=== PATIENT | male | born 1940 | race Caucasian/White ===

== ENCOUNTER → 2016-12-10 | Day surgery (SDC) | payer MEDICARE ==
[~2016-12-10] MED LIST: ALPR.25 PO; ALPR0.25 PO; AMLO5TAB22 PO; BUPIVACAINE/EPINEPHRINE 0.5% 50 ML VIAL ONE; FINA5TAB77; GLUC1000 PO; HYDR-3288 PO; HYDR-3533 PO; LACTATED RINGER'S 1000 ML INJ 1,000 ML ONE; LIDOCAINE 1%/EPINEPHrine 1:100,000 SOLN 20 ML VIAL ONE; LISI-360 PO; LISI10TA3 PO; LOPE2 PO; LOPE2CAP PO; METF1000 PO; PRAV10; PRAV10TA PO; PROS5TAB PO; TERA10CA3 PO; WARF-23 PO; WARF5TAB PO; ceFAZolin 2 GM PREMIX 50 ML ONE
[2016-12-10 08:05] LABS: INTERNATIONAL NORMALIZED RATIO 1.6 RATIO; PROTHROMBIN TIME - PATIENT 17.6 SEC (9.8-11.6)
== END | disposition home or self-care (01) ==
LOC: ESDC 06:08
PROVIDERS: ATTEND Orthopaedic Surgery Orthopaedic Surgery of the Spine
DX: S32.050A Wedge compression fracture of fifth lumbar vertebra, initial encounter for closed fracture (principal); Z53.9 Procedure and treatment not carried out, unspecified reason
CPT/HCPCS: 36415; 85610; G0463; J0690; J7120; 99211

== ENCOUNTER → 2016-12-11 | Day surgery (SDC) | payer MEDICARE ==
--- NOTE | 2016-12-10 14:31 | MH ---
cc: SHERRY PLATA DATE OF ADMISSION: 12/11/2016 ADMISSION DIAGNOSIS Compression fracture, lumbar spine. HISTORY OF PRESENT ILLNESS This patient is a 76-year-old male with significant low back pain. He was seen by the undersigned on 12/03/2016. The patient was complaining of severe onset of pain in his low back since October 2016. Apparently he was lifting his dog when he had the sudden onset of severe low back pain. He sought medical attention and studies were eventually done. The patient had an MRI scan of the lumbar spine showing evidence of a compression fracture of his low back. He presents now for biopsy and kyphoplasty of L5. His bone marrow has an abnormal look to it and in speaking with his primary care physician, there is some concern of myeloma. The patient presents for biopsy in addition to the above procedure for the purpose of defining the etiology of the fracture other than posttraumatic PAST MEDICAL HISTORY, SOCIAL HISTORY, FAMILY HISTORY, REVIEW OF SYSTEMS: See attached notes. PHYSICAL EXAMINATION VITAL SIGNS: A 76-year-old male, 5 feet 5 inches, 148 pounds, BMI 24.6, blood pressure 122/84. HEENT: Normocephalic, atraumatic. Pupils equal, round and reactive to light and accommodation. Extraocular movements intact. NECK: Supple. CHEST: Clear. HEART: Regular rate and rhythm. ABDOMEN: Soft, nontender. Normoactive bowel sounds. MUSCULOSKELETAL: The thoracolumbar spine has restricted motion, pain with range of motion, moderate spasm. Lower extremity straight leg raise is negative. Motor examination is normal. IMPRESSION 1. Compression fracture at L5. 2. Possible pathologic fracture. PLAN Kyphoplasty of L5 with biopsy and placement of bone cement spacer. CONSENT There are risks with surgery including infection, bleeding, loss of motion, continued pain, need for further surgery, neurologic and vascular injury. The patient understands these issues and wishes to press on with surgery as outlined above. Sherry Plata MD [facility] [place] /2:06 PM /2:21 PM
[~2016-12-11] VITALS: Ht 165.1 cm; Wt 61.7 kg
[~2016-12-11] MED LIST changes: +ACETAMINOPHEN/HYDROcodone 325 MG/7.5 MG TAB PO PRN; +BUPIVACAINE/EPINEPHRINE 0.25% 50 ML VIAL ONE; -BUPIVACAINE/EPINEPHRINE 0.5% 50 ML VIAL ONE; +CHLORHEXIDINE GLUCONATE 2 % 1 PACK (2 CLOTHS) TOPICAL PRN; +CHLORHEXIDINE GLUCONATE 4% SOLN 120 ML BTL TOPICAL SCH; +DO NOT ADM ANY ANTICOAGULANT DRUGS PRN; +GADODIAMIDE PF 287 MG/ML 20 ML VIAL (for RAD MRI) I-ARTERIAL ONE; +INSULIN HUMAN REGULAR 1,000 UNITS/10 ML VIAL SQ PRN; +KETAMINE HCL 500 MG/5 ML VIAL ONE; -LACTATED RINGER'S 1000 ML INJ 1,000 ML ONE; +LACTATED RINGER'S 1000 ML IV PRN; +METOPROLOL TARTRATE 25 MG TAB PO PRN; +MIDAZOLAM HCL 2 MG/2 ML VIAL ONE; +MORPHINE SULFATE 4 MG/ML INJ IV PRN; +PROPOFOL 200 MG/20 ML AMP IV ONE; +SODIUM CHLORID 0.9% 500 ML IV PRN; +ceFAZolin 2 GM PREMIX 50 ML IV SCH; -ceFAZolin 2 GM PREMIX 50 ML ONE
[2016-12-11 06:54] VITALS: BP 114/70; PULSE 91; RESP 20; TEMP 98; O2SAT 98
[2016-12-11 07:21] LABS: APTT (PATIENT) 24.5 SEC (24.3-30.1); INTERNATIONAL NORMALIZED RATIO 1.4 RATIO; PROTHROMBIN TIME - PATIENT 15.9 SEC (9.8-11.6)
--- NOTE | 2016-12-11 10:55 | PD.OP ---
cc: Ketan Gaston MD Operative Report Date of Surgery: Dec 11, 2016 Preoperative Diagnosis: Compression fracture L5, subacute. Possible pathologic fracture Postoperative Diagnosis: Same Procedure: L5 kyphoplasty. Biopsy of L5 vertebral body Anesthesia: TIVA Surgeon: Ketan Gaston Linux Security Administrator(s): None Operation and Findings: EBL: Minimal cc INDICATION: This patient is a 76-year-old male with a compression fracture at L5. This is suspicious for a pathologic fracture. The patient has changes on x -ray that are suspicious for multiple myeloma and his primary care physician is concerned this represents multiple myeloma. He presents for a biopsy and kyphoplasty at L5 PROCEDURE: The patient was brought to the operating room and given light sedation.. The patient was allowed to rolled to a prone position on a well- padded radiolucent table. All pressure points were protected in the back was scrubbed with alcohol followed by Hibiclens followed by ChloraPrep and draped sterilely. A timeout was done and antibiotics were given. AP and lateral radiographic images were used to identify the proper levels and perform skin markings. We started from the left side at the 5 level. Local anesthesia was utilized. A small incision was made. An awl was placed down through the skin subcutaneous tissue and muscle down to the end of the facet joint. A core biopsy was performed . This is placed through the pedicle controlling this under AP and lateral images. A proper size balloon was placed through this allowing correction of the deformity. On the back table methylmethacrylate was mixed. After approximately 11 minutes it was injected at this region. We had no extravasation. The cement was allowed harden. The tubes were removed. Intraoperative x-rays were obtained in AP and lateral plane. The wound was irrigated anesthetized and closed with 4-0 Vicryl followed by Dermabond. The sponge count and needle counts and instrument counts were all correct. The patient tolerated the procedure well as taken to the recovery room in satisfactory condition. FINDINGS: There was very soft bone. There was evidence of a compression fracture which was partially corrected. The biopsy was uneventful Ketan Gaston MD Dec 11, 2016 10:55
[2016-12-11 12:00] VITALS: BP 120/84; PULSE 79; RESP 18; TEMP 98.3; O2SAT 96
--- NOTE | 2016-12-11 15:00 | EKG ---
Date Performed: 12/11/2016 Time Performed: 07:12:17 PTAGE: 76 years EKG: Sinus rhythm WITH OCCASIONAL VENTRICULAR PREMATURE COMPLEXES WITH OCCASIONAL SUPRAVENTRICULAR PREMATURE COMPLEXES RIGHT BUNDLE BRANCH BLOCK ABNORMAL ECG NO PREVIOUS TRACING DOCTOR: Seble Mccoy Interpretating Date/Time 12/11/2016 14:55:45
--- NOTE | 2016-12-11 18:14 | RADRPT ---
EXAM DATE/TIME: 12/11/2016 10:18 [facility] COMPARISON: No previous studies available for comparison. INDICATIONS : L5 Kyphoplasty. MEDICAL HISTORY : Hypertension. Diabetes mellitus type II. SURGICAL HISTORY : Cholecystectomy. Appendectomy. ENCOUNTER: Initial ACUITY: 1 day PAIN SCORE: Non-responsive. LOCATION: Lumbar spine. FINDINGS: Two view examination was performed. There are kyphoplasty changes at L5. No complications are identi fied. CONCLUSION: 1. Postop L5 kyphoplasty. Addy Betancourt MD on December 11, 2016 at 18:11 Board Certified Radiologist. This report was verified electronically.
== END | disposition home or self-care (01) ==
LOC: HSDC 06:14
PROVIDERS: ATTEND Orthopaedic Surgery Orthopaedic Surgery of the Spine
DX: S32.059A Unspecified fracture of fifth lumbar vertebra, initial encounter for closed fracture (principal); X50.9XXA Other and unspecified overexertion or strenuous movements or postures, initial encounter; Y93.89 Activity, other specified; Z01.810 Encounter for preprocedural cardiovascular examination; Z01.818 Encounter for other preprocedural examination
CPT/HCPCS: 01936; 22514; 72100; 85610; 85730; 88307; 88311; 88341; 88342; 93005; A9579; J0690; J2250; J7120